=== PATIENT | male | born 1930 | race Caucasian/White ===

== ENCOUNTER 2018-08-09 06:59 | Observation (INO) | payer MEDICARE ==
[~2018-08-09] VITALS: Ht 175.3 cm; Wt 127.3 kg
--- NOTE | ~2018-08-09 | CN ---
PATIENT NAME:YUMIKO PATTERSON MEDICAL RECORD: [id number] : 34 LOCATION:D. D.2130 ADMIT DATE: 08/09/18 ACCOUNT: [id number] CONSULTING PHYSICIAN: IVANIA BRANDON MD REFERRING PHYSICIAN: LOREN GUAMAN MD DATE OF CONSULTATION: 08/10/2018 HISTORY OF PRESENT ILLNESS: An 88-year-old gentleman well known to me with a history of sick sinus syndrome, status post pacemaker placement, hypertension, is admitted with some atypical left lower back pain radiating to the right chest, some atypical chest pain, somewhat atypical for angina. He is also noticing at this time period to be more tired and fatigued. Energy level was down last 2-3 days. Typically stays quite active going to the gym, etc. We are asked to see him concerning his cardiovascular status. PAST MEDICAL HISTORY: Includes: 1. History of sick sinus syndrome, status post pacemaker placement. 2. Dyslipidemia. ALLERGIES: None. MEDICATIONS: Aspirin 81 every day, Coumadin per scale, pravastatin 40 every day, verapamil 240 every day, digoxin 0.125 every day, warfarin per scale. SOCIAL HISTORY: Nonsmoker, nondrinker. Easily takes care of all his ADLs, does exercise on a regular basis. REVIEW OF SYSTEMS: The patient reports easy bruising but reports no swollen glands. The patient reports no fever, no night sweats, no significant weight gain, no significant weight loss. No significant exercise tolerance. The patient reports no dry eyes, no irritation, no vision change. Patient reports no difficulty hearing and no ear pain. Patient reports no frequent nose bleeds or nose and sinus problems. Patient reports on arm pain on exertion. No shortness of breath while lying down. No history of heart murmur. Patient reports no cough, no wheezing or coughing up blood. Patient reports no abdominal pain, no vomiting. Normal appetite. No diarrhea and not vomiting blood. No nausea and no constipation. Patient reports no incontinence. No difficulty urinating. No hematuria. No increased frequency. Patient reports no muscle aches. No weakness, no arthralgias, no back pain. No swelling of the extremities. Patient reports no abnormal mole, no jaundice, no rashes. Reports no loss of consciousness. No weakness and no numbness. No seizures, dizziness, or headaches. The patient reports no depression, no sleep disturbance, feeling safe in a relationship and no alcohol abuse. Patient reports on fatigue. Reports no runny nose or sinus pressure. No itching, no hives, and no frequent sneezing. PHYSICAL EXAMINATION: GENERAL: Pleasant gentleman in no acute distress. VITAL SIGNS: Blood pressure 132/72, pulse 69 and regular. HEENT: Normocephalic, atraumatic. NECK: No bruits are noted. HEART: Regular, II-III/ ejection murmur. LUNGS: Good air excursion. ABDOMEN: Soft, nontender. EXTREMITIES: Pulses 2+ with no edema. CONSULT REPORT [id number] YUMIKO PATTERSON IMPRESSION: Doubt ischemic etiology or cardiovascular etiology of his symptoms. Pacemaker is interrogated. He does have occasional atrial fibrillation, although again he is on Coumadin for CVA prophylaxis, nothing sustained at this standpoint. Agree with serial enzymes. If these are negative, no contraindication to discharge from my standpoint. TRANSINT:[id number] Voice Confirmation ID: [id number] DOCUMENT ID: [id number] IVANIA BRANDON MD CC: [id number] DICTATION DATE: 08/10/18 1304 CUSTOMER SUPPLY COORDINATOR: 08/10/18 1425 ADM IN [facility] [address] [place] [address]
[2018-08-09] MEDS ORDERED: LANOXIN125 MCG PO (07:12)
[2018-08-09] MEDS ORDERED: PROTONIX40 MG PO (07:13)
[2018-08-09] MEDS ORDERED: CALAN SR240 MG PO (07:13)
[2018-08-09] MEDS ORDERED: BAYER CHEWABLE81 MG PO (07:14)
[2018-08-09] MEDS ORDERED: COUMADIN5 MG PO (07:14)
[2018-08-09] MEDS ORDERED: JANTOVEN2.5 MG PO (07:14)
[2018-08-09] MEDS ORDERED: PRAVACHOL40 MG PO (07:15)
[2018-08-09] MEDS ORDERED: FLOMAX0.4 MG PO (07:15)
[2018-08-09 07:38] LABS: BASOPHILS 0.5 % (0-2); EOSINOPHILS 8.2 % (0-7); HEMATOCRIT 37.2 % (42.0-54.0); HEMOGLOBIN 12.7 g/dL (13.5-17.5); IMMATURE GRANULOCYTES 0.2 % (0-5); LYMPHOCYTES 25.1 % (15-50); MCH 32.1 pg (26.0-34.0); MCHC 34.1 g/dL (31.0-37.0); MCV 93.9 fL (80.0-100.0); MEAN PLATELET VOLUME 10.4 fL (7.4-10.4); MONOCYTES 10.6 % (2-11); NEUTROPHILS 55.4 % (40-80); PLATELET COUNT 137 10x3/uL (130-400); RBC 3.96 10x6/uL (4.20-6.10); RDW 13.8 % (11.5-14.5); WBC 5.9 10x3/uL (4.8-10.8)
[2018-08-09 07:44] LABS: ALBUMIN 3.4 g/dL (3.4-5.0); ALKALINE PHOSPHATASE 64 U/L (46-116); ALT (SGPT) 19 U/L (10-68); CALC OSMOLALITY 285 mosm/kg (275-300); CALCIUM 8.7 mg/dL (8.5-10.1); CARBON DIOXIDE 26.3 mmol/L (21.0-32.0); CHLORIDE - SERUM 108 mmol/L (98-107); CREATININE - SERUM 0.7 mg/dL (0.6-1.3); GLUCOSE 97 mg/dL (74-106); POTASSIUM - SERUM 3.8 mmol/L (3.5-5.1); PROTEIN - SERUM 6.8 g/dL (6.4-8.2); SODIUM 143 mmol/L (136-145); UREA NITROGEN 15 mg/dL (7-18); eGFR NON AFRICAN AMERICAN > 90 mL/min (90-120)
[2018-08-09 07:52] LABS: CREATINE KINASE 83 UL (21-232); LIPASE 118 U/L (73-393); MAGNESIUM - SERUM 1.8 mg/dL (1.8-2.4); PRO BNP 331 pg/mL (0-450); TROPONIN-I 0.022 ng/mL (0.000-0.060)
[2018-08-09 09:57] VITALS: BP 110/64; Ht 175.3 cm; Wt 127.3 kg
[2018-08-09 11:49] VITALS: BP 115/69
--- NOTE | 2018-08-09 12:26 | EC ---
PATIENT:YUMIKO PATTERSON DATE OF SERVICE: 08/09/18 SEX: M MEDICAL RECORD: [id number] DATE OF : 34 LOCATION:D.M2 D.213 AGE OF PATIENT: 88 ADMISSION DATE: 08/09/18 REFERRING PHYSICIAN: INTERPRETING PHYSICIAN: IVANIA BRANDON MD ECHOCARDIOGRAM REPORT ECHO CHARGES 4 ECHO COMPLETE Date: 08/09/18 CLINICAL DIAGNOSIS: CHEST PAIN, HX OF PACER ECHOCARDIOGRAPHIC MEASUREMENTS (adult normal given) AC root (d.<3.7cm) 3.5 cm LV Septum d (<1.2 cm> 1.5 cm Valve Excursion 1.2 cm LV Septum (systole) 1.6 cm Left Atria (s.<4.0cm> cm LVPW d(<1.2cm) 1.1 cm RV (d.<2.3cm) 4.4 cm LVPW (sytole) 1.7 cm LV diastole(<5.6CM) 5.3 cm MV E-F(>70mm/sec) cm LV systole 4.0 cm LVOT Diameter 2.2 cm MV exc.(>10mm) 1.3 cm Est.ejection fraction (50-75%) % DOPPLER: LVIT cm/sec A 86.0 cm/sec E 75.0 cm/sec LA cm/sec RVSP 33 mmHg LVOT 91 cm/sec AOP1/2T m/s Asc. Ao 420 cm/sec RVOT 82 cm/sec RA cm/sec PA 146 cm/sec AV Gradient Peak 70.46mmHg AV Mean 47.48mmHg AV Area 0.8 cm MV Gradient Peak 3.75 mmHg MV Mean 1.47 mmHg MV Area cm COMMENTS: Clerk Rating: Luis Antonio GUERRA Director Mortgage: [address] Dr. Mcdonald TAPE# PACS Pericardial Effusion N DATE OF SERVICE: 08/09/2018 Adequate 2-D echo, color-flow and spectral Doppler, and M-mode. LVH is present. LV internal dimensions are normal. Wall motion is normal. EF is greater than or equal to 55%. 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 Peak gradient of 70 mmHg, putting this in probable severe range. Left atrium is dilated at 4.6 cm. Mitral valve shows no prolapse. Mild MR. Right-sided chambers are grossly normal. Mild TR. ECHOCARDIOGRAM REPORT [id number] YESENIA,YUMIKO TRANSINT:[id number] Voice Confirmation ID: [id number] DOCUMENT ID: [id number] IVANIA BRANDON MD at 1226 CC: [id number] DICTATION DATE: 08/09/18 1148 FINAL BLOCK PRESS OPERATOR: 08/09/18 1221 ADM IN [facility] [id number] [place] [address]
[2018-08-09 14:57] VITALS: BP 122/72
[2018-08-09 18:16] LABS: % SATURATION 37 % (15-55); IRON 94 ug/dl (35-150); TOTAL IRON BIND CAPACITY 253 ug/dl (260-445); UNSAT IRON BIND CAPACITY 159 ug/dl (150-375)
[2018-08-09 19:46] LABS: INR 3.09 (0.85-1.17); PROTIME 31.1 SECONDS (11.6-15.0)
[2018-08-09 20:31] VITALS: BP 119/58
[2018-08-09] MEDS ORDERED: XALATAN 0.0052.5 ML EACH EYE (20:52)
[2018-08-10 01:02] VITALS: BP 112/58
[2018-08-10 05:37] VITALS: BP 91/44
[2018-08-10 06:21] LABS: BASOPHILS 0.9 % (0-2); EOSINOPHILS 11.1 % (0-7); HEMATOCRIT 35.5 % (42.0-54.0); HEMOGLOBIN 12.1 g/dL (13.5-17.5); IMMATURE GRANULOCYTES 0.2 % (0-5); LYMPHOCYTES 31.5 % (15-50); MCH 31.9 pg (26.0-34.0); MCHC 34.1 g/dL (31.0-37.0); MCV 93.7 fL (80.0-100.0); MEAN PLATELET VOLUME 10.5 fL (7.4-10.4); MONOCYTES 11.8 % (2-11); NEUTROPHILS 44.5 % (40-80); PLATELET COUNT 140 10x3/uL (130-400); RBC 3.79 10x6/uL (4.20-6.10); RDW 13.8 % (11.5-14.5); WBC 5.7 10x3/uL (4.8-10.8)
[2018-08-10 06:31] LABS: ALBUMIN 3.1 g/dL (3.4-5.0); ALKALINE PHOSPHATASE 47 U/L (46-116); BILIRUBIN - TOTAL 0.59 mg/dL (0.2-1.3); CALCIUM 8.5 mg/dL (8.5-10.1); CHLORIDE - SERUM 106 mmol/L (98-107); CREATININE - SERUM 0.7 mg/dL (0.6-1.3); GLUCOSE 86 mg/dL (74-106); POTASSIUM - SERUM 3.3 mmol/L (3.5-5.1); PROTEIN - SERUM 6.1 g/dL (6.4-8.2); SODIUM 137 mmol/L (136-145); eGFR NON AFRICAN AMERICAN > 90 mL/min (90-120)
[2018-08-10 06:34] LABS: ALT (SGPT) 24 U/L (10-68); CALC OSMOLALITY 271 mosm/kg (275-300); UREA NITROGEN 11 mg/dL (7-18)
[2018-08-10 07:29] VITALS: BP 143/69
[2018-08-10 11:14] LABS: FOLATE (FOLIC ACID) - SERUM >20.0 ng/mL (>3.0)
[2018-08-10 11:45] VITALS: BP 132/72
--- NOTE | 2018-08-10 15:45 | MORECARE ---
CASE MANAGEMENT DISCHARGE SUMMARY PATIENT: YUMIKO PATTERSON UNIT: [id number] ADM DATE: 08/09/18 AGE: 88 : 32 SEX: M ROOM/BED: D.2130 AUTHOR: LINDA FERREIRA PHYSICIAN: REFERRING PHYSICIAN: LOREN GUAMAN MD DATE OF SERVICE: 08/10/18 Discharge Plan Patient Name: YUMIKO PATTERSON Facility: [facility]:Model : 1930 Planned Disposition: Home Anticipated Discharge Date: 08/10/18 Discharge Date: 08/10/2018 Expected LOS: 1 Initial Reviewer: [email or web address] Initial Review Date: 08/10/2018 Generated: 08/10/18 4:45 pm Patient Name: YUMIKO PATTERSON Page [id number] at 1545 All edits/amendments must be made on the electronic document DICTATION DATE: 08/10/18 1545 [employer]: REBECA 08/10/18 1545 RPT#: [id number] DC DATE:08/10/18 STATUS: DIS IN [facility] [address] [facility] [place] [address] END OF REPORT
== END 2018-08-10 14:45 | disposition home or self-care (01) ==
LOC: D.ER 06:59 → OBSVTIME 08:36 → D.EDHOLD 08:36 → D.M2 08:51
PROVIDERS: Family Medicine; ADMIT Family Medicine; ATTEND Family Medicine
DX: R07.89 Other chest pain (principal); Z95.0 Presence of cardiac pacemaker; E78.5 Hyperlipidemia, unspecified; K21.9 Gastro-esophageal reflux disease without esophagitis; M19.90 Unspecified osteoarthritis, unspecified site; N40.0 Benign prostatic hyperplasia without lower urinary tract symptoms; I48.91 Unspecified atrial fibrillation; Z79.01 Long term (current) use of anticoagulants; D64.9 Anemia, unspecified; I10 Essential (primary) hypertension